=== PATIENT | male | born 1950 | race Caucasian/White ===

== ENCOUNTER 2017-07-02 22:45 | Inpatient (IN) ==
[2017-07-02 23:55] LABS: Basophils % 0.1 %; Hemoglobin 12.6 g/dL (12.9-16.9); Immature Granulocytes % 0.6 % (0-4); Lymphocytes # 0.8 K/mcL (0.6-4.6); Lymphocytes % 9.6 %; Mean Corpuscular Hemoglobin 34.7 pg (28.0-33.3); Mean Corpuscular Volume 99.2 fL (83.0-100.0); Mean Platelet Volume 10.2 fL (9.4-12.4); Monocytes # 0.5 K/mcL (0.0-1.3); Monocytes % 5.2 %; Neutrophils # 7.4 K/mcL (1.6-8.9); Platelet Count 124 K/mcL (140-400); Red Blood Count 3.63 M/mcL (4.19-5.50); Red Cell Distribution Width 13.1 % (11.5-14.5); Segmented Neutrophils % 84.5 %
[2017-07-03 00:10] LABS: Bilirubin,Direct 0.6 mg/dL (0.0-0.5); Calcium 9.4 mg/dL (8.6-10.8); Potassium 4.7 mEq/L (3.5-4.5)
[2017-07-03 00:11] LABS: Albumin 3.5 g/dL (3.5-5.0); Albumin/Globulin Ratio 1.1 (1.1-2.2); Bilirubin,Indirect 0.4 mg/dL (0.0-1.2); Globulin 3.2 g/dL (2.4-3.5); Total Protein 6.7 g/dL (6.0-8.3)
[2017-07-03] MEDS ORDERED: MetroNIDAZOLE 500 MG/100 ML 500 MG/100 ML BAG IVPB ONE (01:15)
--- NOTE | 2017-07-03 01:19 | Emergency Department Note ---
Disposition Clinical Impression: Abdominal pain, Ileitis, Rectal bleed Disposition: Admitted As Inpatient Condition: Fair Time of Disposition: 01:34 Abdominal Pain HPI - General Chief Complaint: ED Abdominal Pain Stated Complaint: abd pain Time Seen by Provider: 07/02/17 23:38 Source: patient Nursing Notes Reviewed: Yes Vital Signs Reviewed: Yes - History of Present Illness HPI Narrative: Mr. Ghosh, 66-year-old male, presents from home for reevaluation of right sided abdominal pain. Onset 3-4 days ago and progressive. He was seen and evaluated yesterday at this facility where CT abdomen and pelvis showed ileitis and he was discharged home with oral antibiotics. Today, patient notes worsening pain , chills, with the addition of new onset loose melanotic stools 2. He has decreased appetite and increased weakness. Patient is a history of bladder cancer with radical cystectomy and urostomy. Hepatic cirrhosis with esophageal varices and portal hypertension. History of infrarenal abdominal aortic aneurysm. Chronic B12 insufficiency secondary to ileal conduit/stomal diversion. Pain Scale: 10 - Related Data Home Medications Medication Instructions Recorded Confirmed Nadolol [Corgard] 40 mg PO DAILY 05/07/15 06/21/17 Previous Rx's Medication Instructions Recorded Cholecalciferol (Vitamin D3) 5,000 unit PO DAILY #30 tablet 11/01/15 [Vitamin D] Phenyleph/Pramoxin/Glycr/W.pet 51 gm RC PRN PRN #1 cream..g. 02/20/16 [Preparation H Cream] Cyanocobalamin (Vitamin B-12) 1,000 mcg PO DAILY #90 tablet 02/24/16 [Vitamin B-12] Lactose-Reduced Food [Ensure 1 each PO TID #90 liquid 05/11/17 Active Protein-Muscle] Gabapentin [Neurontin] 1 cap PO BID #60 capsule 06/21/17 Oxycodone HCl/Acetaminophen 1 each PO TID PRN #90 tablet 06/21/17 [Percocet 5-325 mg Tablet] Ciprofloxacin HCl [Cipro] 500 mg PO BID #14 tablet 07/01/17 Meloxicam 7.5 mg PO BID #14 tablet 07/01/17 metroNIDAZOLE [Flagyl] 500 mg PO TID #21 tablet 07/01/17 Allergies Allergy/AdvReac Type Severity Reaction Status Date / Time Oxycodone Allergy Unknown unknown Verified 07/02/17 23:26 All systems ED: reviewed and negative except as stated. Review of Systems: As Per HPI Abdominal Pain PMH - Past Medical History Medical history: Reports: arthritis, cancer, cirrhosis, hypertension, other Male Surgical History: Reports: other Psychiatric history: Reports: no psych history - Social History Smoking status: Current every day smoker Alcohol use: Reports: none Drug use: Reports: marijuana Physical Exam Vital Signs Reviewed General: Patient is alert, oriented, and in mild discomfort from his abdominal pain. He appears older than stated age and malnourished. HEENT: No facial asymmetry. Head is normocephalic and atraumatic. PERRLA, EOMI. oral mucosa tacky. Trachea midline. Cardiovascular: Heart regular rate and rhythm without clicks, rubs, gallops, or murmurs. No JVD. PMI nondisplaced. Pedal edema. Bilateral radial and posterior tibial pulses 2/4 and equal. Respiratory: Symmetric chest rise with or respiratory effort. Bilateral breath sounds are clear without wheezing, crackles, or rhonchi. Abdomen: A point. Bowel sounds present normoactive x-4 quadrants. Abdomen is soft, nondistended. Tender in right middle abdomen. Urinary ostomy present, clean, with ostomy bag in place. Psych: Patient's affect is appropriate for situation. - General Limitations: no limitations General appearance: alert, in no apparent distress Course Course Narrative: Patient presents for reevaluation of his right-sided abdominal pain. He was seen and evaluated in this emergency department yesterday and discharged home with Flagyl. His pain has persisted with the addition of loose melanotic stools. FOBT is positive with umesh blood and melena on gloved fingertip. Concerned, patient's hemoglobin has dropped from 14.7 as of 12.6 and 36 hours. Patient's vital signs remained stable while in emergency department. Will provide IV fluids and intravenous rate, IV Flagyl, and analgesic. I discussed the patient with the admitting hospitalist, Dr. Gaytan, who agrees to accept the patient for continued evaluation and management. CT abdomen pelvis IV no oral contrast dated 07/01/2017 as read by radiology: CT/CT abd pelvis w iv no oral IMPRESSION: 1. Status post cystectomy with ileal diversion. 2. Bowel wall thickening and edema involving the distal ileum representing nonspecific postinfectious or inflammatory origin. There is no evidence of pneumatosis. 3. Infrarenal abdominal aortic aneurysm 3.6 x 3.6 cm. 4. Cirrhosis with re-demonstration to the left portal vein, main portal vein, and superior mesenteric vein thrombosis. 5. Cholelithiasis. Vital Signs Temperature 97.7 F 07/02/17 23:21 Pulse Rate 60 07/02/17 23:21 Respiratory Rate 20 07/02/17 23:21 Blood Pressure 98/63 07/02/17 23:21 O2 Sat by Pulse Oximetry 99 07/02/17 23:21 Temperature 98.3 F 07/03/17 02:07 Pulse Rate 54 07/03/17 02:07 Respiratory Rate 18 07/03/17 02:07 Blood Pressure 103/63 07/03/17 02:07 O2 Sat by Pulse Oximetry 98 07/03/17 02:07 Oxygen Delivery Oxygen Delivery Room Air Abdominal Pain - Lab Data Result diagrams: 07/02/17 23:45 07/02/17 23:45 Lab Results 07/02/17 07/02/17 07/03/17 Range/Units 23:45 23:45 00:00 WBC 8.8 (4.3-11.1) K/mcL RBC 3.63 L (4.19-5.50) M/mcL Hgb 12.6 L D (12.9-16.9) g/dL Hct 36.0 L (37.5-50.1) % MCV 99.2 (83.0-100.0) fL MCH 34.7 H (28.0-33.3) pg MCHC 35.0 (31.6-35.5) g/dL RDW 13.1 (11.5-14.5) % Plt Count 124 L (140-400) K/mcL MPV 10.2 (9.4-12.4) fL Immature Gran % 0.6 (0-4) % Seg Neutrophils % 84.5 % Lymphocytes % 9.6 % Monocytes % 5.2 % Eosinophils % 0.0 % Basophils % 0.1 % Neutrophils # 7.4 (1.6-8.9) K/mcL Lymphocytes # 0.8 (0.6-4.6) K/mcL Monocytes # 0.5 (0.0-1.3) K/mcL Eosinophils # 0.0 (0.0-0.6) K/mcL Basophils # 0.0 (0.0-0.2) K/mcL Sodium 137 (136-145) mEq/L Potassium 4.7 H (3.5-4.5) mEq/L Chloride 102 (98-109) mEq/L Carbon Dioxide 23 (19-29) mEq/L BUN 38 H (8-26) mg/dL Creatinine 1.54 H (0.72-1.25) mg/dL Est GFR ( Amer) 55 L (> 60) Est GFR (Non-Af Amer) 46 L (> 60) BUN/Creatinine Ratio 25 (6-26) Glucose 109 H (70-99) mg/dL Calculated Osmolality 294 (280-300) Calcium 9.4 (8.6-10.8) mg/dL Total Bilirubin 1.0 (0.2-1.2) mg/dL Direct Bilirubin 0.6 H (0.0-0.5) mg/dL Indirect Bilirubin 0.4 (0.0-1.2) mg/dL AST 17 (5-34) Units/L ALT 10 (0-55) Units/L Alkaline Phosphatase 59 (38-126) Units/L Serum Total Protein 6.7 (6.0-8.3) g/dL Albumin 3.5 (3.5-5.0) g/dL Globulin 3.2 (2.4-3.5) g/dL Albumin/Globulin Ratio 1.1 (1.1-2.2) Lipase 12 (8-78) Units/L Stool Occult Blood Positive A (Negative) Attestation Statement - Attestation Attestation: I, Clive Schaeffer MD, personally evaluated this patient and discussed their management with the resident physician. I reviewed the resident's note and agree with the documented findings, medical decision making, and plan of care. 66-year-old male presents to the emergency department complaining of some right- sided abdominal pain for several days. He was seen here yesterday and had a workup for this including a CT of the abdomen and pelvis which showed ileitis. He returns today because of persistent pain and actual worsening of the pain. Also some blood in his stool. No fever. On examination patient is a well-developed thin female in no acute distress. He is alert and oriented 3. There is no cyanosis or diaphoresis. Breath sounds are decreased but equal bilaterally. Heart regular. Abdomen is soft with slightly increased bowel sounds. There is moderate diffuse right-sided abdominal tenderness with mild guarding. No rebound tenderness. Labs reviewed. The hospitalist, Dr. Gaytan, was consulted and accepted admission of the patient.
[2017-07-03] MEDS ORDERED: Ondansetron 4 MG/2 ML VIAL IVP ONE (01:25)
[2017-07-03] MEDS ORDERED: *HR* HYDROmorphone (PF) 1 MG/ML SYRINGE IVP ONE (01:26)
[2017-07-03] MEDS ORDERED: D5% in 0.45% NACL 1,000 ML IVC SCH (01:30)
[2017-07-03] MEDS ORDERED: Ringers Solution, Lactated 1,000 ML IVC SCH (04:15)
[2017-07-03] MEDS: *HR* Morphine 2 MG/ML SYRINGE IVP PRN ×3 (06:18→20:24)
[2017-07-03 07:47] LABS: Basophils % 0.2 %; Eosinophils % 0.1 %; Hematocrit 32.6 % (37.5-50.1); Hemoglobin 11.4 g/dL (12.9-16.9); Immature Granulocytes % 0.4 % (0-4); Lymphocytes # 0.9 K/mcL (0.6-4.6); Lymphocytes % 9.9 %; Mean Corpuscular Hemoglobin 34.7 pg (28.0-33.3); Mean Corpuscular Volume 99.1 fL (83.0-100.0); Mean Platelet Volume 10.9 fL (9.4-12.4); Monocytes # 0.6 K/mcL (0.0-1.3); Monocytes % 6.6 %; Neutrophils # 7.5 K/mcL (1.6-8.9); Platelet Count 105 K/mcL (140-400); Red Blood Count 3.29 M/mcL (4.19-5.50); Red Cell Distribution Width 13.3 % (11.5-14.5); Segmented Neutrophils % 82.8 %
[2017-07-03 08:02] LABS: BUN/Creatinine Ratio 30 (6-26); Blood Urea Nitrogen 39 mg/dL (8-26); Calcium 8.7 mg/dL (8.6-10.8); Carbon Dioxide 24 mEq/L (19-29); Chloride 105 mEq/L (98-109); Glucose 101 mg/dL (70-99); Magnesium 1.9 mg/dL (1.6-2.6); Osmolality,Calculated 294 (280-300); Potassium 4.4 mEq/L (3.5-4.5); Sodium 137 mEq/L (136-145); eGFR For African Americans > 60 (> 60); eGFR For Non-African Americans 55 (> 60)
[2017-07-03] MEDS: Gabapentin 300 MG CAPSULE PO SCH ×2 (09:30→20:24)
[2017-07-03] MEDS: Cholecalciferol (D-3) 1,000 UNIT TABLET PO SCH (09:30)
[2017-07-03] MEDS: 0.9 % Sodium Chloride 1,000 ML IVC SCH ×2 (09:30→20:22)
[2017-07-03] MEDS ORDERED: Acetaminophen 325 MG TABLET PO PRN (09:41)
[2017-07-03] MEDS ORDERED: Naloxone 0.4 MG/ML INJ IVP PRN (09:41)
[2017-07-03] MEDS ORDERED: Ondansetron 4 MG/2 ML VIAL IVP PRN (09:41)
--- NOTE | 2017-07-03 09:41 | Event Note ---
Date of Encounter: 07/03/17 Time of Encounter: 09:37 Patient seen and exmained with [employer]. He has been having melena with ssome Hb drop. Will start protonix drip and GI consult. He has portal and mesenteric vein thrombosis, anticoagulants cant be given besides part of this is old. He follows with oncology. He mentions that he is in remission from bladder cancer. He had 10 lbs weight loss in the past 6 month so needs follow up with oncology as outpatient. CT showing ileitis, will give IV flagyl and check stool studies.
--- NOTE | 2017-07-03 10:08 | Internal Med History&Physical ---
Date of Encounter: 07/03/17 Time of Encounter: 09:00 Assessment and Plan (1) GI bleeding Current visit: Yes Status: Acute Pt. presents with melatonic stool x2 today. Hx of GI issues and procedures and is considered high-risk d/t current cirrhosis, portal hypertensions, hypersplenism, and thrombocytopenia. Pts. BUN is 30 which is consistent w/GI bleeding. Hgb 12.6 and Hct 36.0 yesterday. Hgb 10.1 and Hct 29.4 at last draw this afternoon. H/H Q6HR. Protonix drip. Monitor I&O. NPO at present. Will consider clear liquids if pt. able to tolerate d/t N/V. Surgical consult ordered and discussed w/Dr. Corrigan with concern for possible esophageal varices. Pt. seen by Dr. Guajardo in the past, so Casandra consulted w/opinion towards duodenitis or gastritis as previous imaging negative for varices in his opinion. Administer B12 IM. Avoid acetaminophen d/t cirrhosis. Avoid NSAIDs d/t current bleeding. Type and screen completed for possible transfusion based on continued drop in Hgb/Hct. Pt. to be monitored closely. Pt. high risk d/t current sx of bleeding, hx of cirrhosis/portal HTN/hypersplenism/ thrombocytopenia, and risk factors. Inpatient. Qualifiers: GI bleed type/associated pathology: unspecified gastrointestinal hemorrhage type Qualified Code(s): K92.2 - Gastrointestinal hemorrhage, unspecified (2) Abdominal pain Current visit: Yes Status: Acute Pt. reports acute right-sided lower abdominal pain for the past several days which has worsened with N/V. Pt. also reports melanotic stool x2. Pt. was seen at ED on 07/01/17 and thought to have ileitis and discharged on Cipro and Flagyl. Reports pain worsened with black stool x2 today. Hgb was 12.6 and Hct was 36.0 yesterday. Today both are consistently dropping. Consult with surgery ordered and discussed w/Dr. Corrigan w/concern for possible esophageal varices. Pt. seen by Dr. Guajardo in the past, so Casandra consulted w/opinion towards duodenitis or gastritis as previous imaging negative for varices. Recommendation from Dr. Guajardo to continue Protonix drip and monitor Hgb/Hct Q6HR. Patient NPO at present. Will begin clear diet if pt. able to tolerate. Pain medication (will avoid acetaminophen d/t cirrhosis and NSAIDs d/t current GI bleeding of unknown source ). Qualifiers: Abdominal location: right lower quadrant Qualified Code(s): R10.31 - Right lower quadrant pain (3) B12 deficiency Current visit: Yes Status: Chronic Hx of chronic B12 deficiency d/t current cirrhosis and GI bleeding. 1,000 mcg B12 IM once. (4) Cirrhosis of liver Current visit: Yes Status: Chronic Hx of chronic cirrhosis of the liver d/t alcohol abuse. Qualifiers: Hepatic cirrhosis type: alcoholic cirrhosis Ascites presence: without ascites Qualified Code(s): K70.30 - Alcoholic cirrhosis of liver without ascites (5) Cholelithiasis Current visit: Yes Status: Chronic CT of the abdomen/pelvis on 07/01/17 shows multiple stones present in the gallbladder. Stable. Monitor OP w/PCP if cholelithiasis becomes problematic. Pt. not surgical candidate at this time. Qualifiers: Cholelithiasis location: gallbladder Cholecystitis acuity: chronic Biliary obstruction: without biliary obstruction Qualified Code(s): K80.10 - Calculus of gallbladder with chronic cholecystitis without obstruction (6) HTN (hypertension) Current visit: Yes Status: Chronic Hx of chronic HTN. Monitor pt. and VS. Continue Corgard. Qualifiers: Hypertension type: essential hypertension Qualified Code(s): I10 - Essential (primary) hypertension (7) Bladder cancer Current visit: Yes Status: Resolved Hx of bladder cancer. Pt. reports removal of bladder in 2010 with urinary ostomy in place. Maintain ostomy while inpatient. Qualifiers: Bladder location: unspecified site Qualified Code(s): C67.9 - Malignant neoplasm of bladder, unspecified (8) DVT prophylaxis Current visit: Yes Status: Acute Bilateral SCDs on LEs for DVT prophylaxis. Pharmacologic prophylaxis contraindicated d/t current melenotic stool and acutely decreasing Hgb/Hct. Internal Medicine - H&P: HPI Chief complaint: Right-sided abdominal pain/Rectal bleeding Admitted From: Emergency Dept Plans for Post Hospital Care: Home History of present illness: Mr. Ghosh is a 66 year old male with medical history of arthritis, bladder cancer resulting in the removal of his bladder in 2010, alcoholic cirrhosis of the liver, aortic aneurysm, and hypertension reports from the ED with chief complaint of right-sided abdominal pain for past 3-4 days and rectal bleeding for the past 24 hours. Patient was seen 2 days ago at [facility] and diagnosed with ileitis and discharged with by mouth antibiotics. Patient states pain became worse and return today due to new onset of rectal bleeding and loose stools. Patient reports decreased appetite, nausea, vomiting, increased weakness, rectal bleeding, and abdominal pain that is right sided but denies recent illness, fever, chills chest pain, palpitations, changes in vision, dizziness, lightheadedness, shortness of breath, presyncope, or syncope. Past Med Surg Social Fam HX - Past Medical History Source: patient, old records reviewed Medical history: arthritis, cancer (Bladder cancer w/removal of bladder in 2010) , cirrhosis, hypertension, other Psychiatric history: no psych history - Past Surgical History Surgical History: other (Bladder removal) - Social History Smoking Status: Current every day smoker Packs per day: 0.5 Smokeless Tobacco Status: No Alcohol use: none Drug use: marijuana Current living situation: Home Activity Level: Independent ambulation Recent Out of Country Travel Within the Last 8 Weeks: No Exposure or Possible Exposure to Illness During Travel: No - Family History Father Race: Family Member Ethnicity: Non- Living Status: Age at : 62 Cause of : Suicide Hx Family Cardiac Disorders: Yes ([place], CAD) Brother Race: Family Member Ethnicity: Non- Living Status: Hx Family Cardiac Disorders: Yes (CAD, [place]) Mother Race: Family Member Ethnicity: Non- Living Status: Cause of : Old age Sister Race: Family Member Ethnicity: Non- Living Status: Cause of : Unknown Internal Medicine - H&P: Meds Nadolol [Corgard] 40 mg PO DAILY 05/07/15 [History] Cholecalciferol (Vitamin D3) [Vitamin D] 5,000 unit PO DAILY #30 tablet [Rx] Cyanocobalamin (Vitamin B-12) [Vitamin B-12] 1,000 mcg PO DAILY #90 tablet 02/23 [Rx] Ciprofloxacin HCl [Cipro] 500 mg PO BID #14 tablet 07/01/17 [Rx] Meloxicam 7.5 mg PO BID #14 tablet 07/01/17 [Rx] metroNIDAZOLE [Flagyl] 500 mg PO TID #21 tablet 07/01/17 [Rx] Gabapentin [Neurontin] 300 mg PO BID 07/03/17 [History] Oxycodone HCl/Acetaminophen [Percocet 5-325 mg Tablet] 1 tab PO TID PRN [History] 3 Allergy/AdvReac Type Severity Reaction Status Date / Time Oxycodone Allergy Unknown unknown Verified 07/02/17 23:26 All Systems PM: A 10-system review of systems was performed and is negative for pertinent findings except as documented above in the HPI. - Constitutional Constitutional: as per HPI, anorexia, weakness, no chills, no fever(s), no night sweats - EENT Eyes: no change in vision, no discharge, no pain, no photophobia Ears: no ear discharge, no ear pain, no tinnitus Nose, mouth and throat: no dysphagia, no nasal discharge, no neck pain, no sore throat - Breasts Breasts: as per HPI - Cardiovascular Cardiovascular ROS IM: no chest pain, no diaphoresis, no dyspnea, no lightheadedness, no palpitations, no syncope - Respiratory Respiratory: no cough, no dyspnea, no wheezing, no excessive phlegm production - Gastrointestinal Gastrointestinal: as per HPI, abdominal pain, loose stools, melena, nausea, vomiting - Genitourinary Genitourinary ROS male: as per HPI - Musculoskeletal Musculoskeletal ROS IM: no numbness, no tingling - Integumentary Integumentary IM: no rash, no unusual bruising - Neurological Neurological ROS: no confusion, no convulsions, no focal weakness, no numbness, no tingling, no tremor(s) - Psychiatric Psychiatric: as per HPI - Endocrine Endocrine IM: as per HPI - Hematologic/Lymphatic Hematologic/Lymphatic: no easy bruising - Allergic/Immunologic Allergic/Immunologic: as per HPI - Constitutional Vitals: Temp Pulse Resp BP Pulse Ox 98.5 F 52 15 107/58 97 07/03/17 07:56 07/03/17 07:56 07/03/17 07:56 07/03/17 07:56 07/03/17 07:56 General appearance: Present: cooperative, mild distress, A&O X 3, pleasant, underweight, answers questions appropriately - Head Head exam: Present: atraumatic, normocephalic - Eye Eye exam: Present: PERRL, conjuntiva pink, sclera anicteric Pupils: Present: PERRL - ENT ENT exam: Present: normal exam, normal external ear exam - Neck Neck exam general surgery: Present: normal inspection, supple, trachea midline. Absent: lymphadenopathy - Respiratory Respiratory exam: Present: CTAB. Absent: accessory muscle use, rales, rhonchi, wheezes - Cardiovascular Cardiovascular exam: Present: RRR, +S1, +S2. Absent: diastolic murmur, gallop, rubs, systolic murmur - GI/Abdominal GI/Abdominal exam: Present: diminished bowel sounds, guarding, soft, tenderness , no peritoneal signs. Absent: distended - Rectal Rectal exam: Present: deferred - Additional comments: exam deferred. - Extremities Exam Extremities exam: Present: warm, radial pulses palpable and symmetrical. Absent : calf tenderness, cyanotic, pedal edema - Back Exam Back exam: Present: normal inspection - Neurological Exam Neurological exam: Present: CN II-XII intact, oriented X3, no focal deficits. Absent: pronater drift, facial droop, speech deficit - Psychiatric Psychiatric exam: Present: normal affect, normal mood - Skin Skin exam: Present: dry, intact Internal Med - H&P Results - Labs CBC & Chem 7: 07/03/17 14:33 07/03/17 07:28 Labs: Short CBC 07/03/17 Range/Units 07:28 WBC 9.1 (4.3-11.1) K/mcL Hgb 11.4 L (12.9-16.9) g/dL Hct 32.6 L (37.5-50.1) % Plt Count 105 L (140-400) K/mcL Neutrophils # 7.5 (1.6-8.9) K/mcL BMP 07/03/17 07:28 Sodium 137 Potassium 4.4 Chloride 105 Carbon Dioxide 24 BUN 39 H Creatinine 1.31 H Glucose 101 H Calcium 8.7 - Diagnostic Studies CT scan - abdomen Additional comments: CT of the abdomen/pelvis on 07/01/17 showed: 1. Status post cystectomy with ileal diversion. 2. Bowel wall thickening and edema involving the distal ileum representing nonspecific postinfectious or inflammatory origin. There is no evidence of pneumatosis. 3. Infrarenal abdominal aortic aneurysm 3.6 x 3.6 cm. 4. Cirrhosis with re-demonstration to the left portal vein, main portal vein, and superior mesenteric vein thrombosis. 5. Cholelithiasis.
[2017-07-03] MEDS: Pantoprazole 40 MG in 0.9 % Sodium Chloride Mini Bag 100 ML IVC SCH ×3 (10:12→21:42)
[2017-07-03 10:19] LABS: Hematocrit 31.6 % (37.5-50.1); Hemoglobin 10.8 g/dL (12.9-16.9)
[2017-07-03 10:24] LABS: INR 1.2; Prothrombin Time 12.5 Seconds (9.4-12.1)
[2017-07-03 10:27] LABS: Activated Partial Thrombo Time 26.4 Seconds (26.0-36.0)
[2017-07-03 11:52] LABS: Hematocrit 31.3 % (37.5-50.1); Hemoglobin 10.9 g/dL (12.9-16.9)
--- NOTE | 2017-07-03 14:26 | General Surgery Consult Note ---
Date of Encounter: 07/03/17 Time of Encounter: 13:30 History of Present Illness Consult date: 07/03/17 Requesting physician: Vincent Hernandez History of present illness: General Surgery / GI coverage Called to see a 66-year-old patient for further evaluation of right upper quadrant abdominal pain and rectal bleeding. The patient describes several days abdominal pain and rectal bleeding which he characterizes as black and tarry. The patient presented to the ED, 07/01/17, for these complaints. CT of the abdomen and pelvis was completed with diagnosis of distal ileitis. The patient was treated with antibiotics and discharged with instructions to follow- up with his primary care provider. Review of those records reveal the patient was discharged home on ciprofloxacin, meloxicam, and metronidazole. Patient returns today with complaints increased abdominal pain and melena. Patient has a known history of bladder cancer, status post total cystectomy with ileal conduit 2010; alcoholic cirrhosis of the liver; hypersplenism with resultant thrombocytopenia. The patient has been followed by Dr. Guajardo, however, I am unable to review the most recent EGD which appears to have been completed, February 2016. Biopsies completed during that EGD showed mild active duodenitis, esophageal biopsies demonstrated mild reactive changes with benign foveolar hyperplasia. No metaplasia or dysplasia identified. The patient is an extremely poor historian and unable to provide information whether esophageal varices were identified during the EGD or at any other time. Following receipt of the consultation, I personally reviewed the most recent CT with [facility] including comparison to a prior CT, 02/05/17, and another completed in 2014. The CT completed in February,, was limited by the lack of IV contrast but findings per the CTs include: portal venous thrombus involving the left hepatic vein which was also present in 2014; diffuse thickening of the distal small bowel in the right pelvis without surrounding inflammation (these finding also date back to 2014); evidence of an ileal conduit, and gallstones. The wall thickening appears more likely due to prior total cystectomy with XRT rather than an acute infectious etiology. Past medical history: Advanced bladder cancer (high-grade urothelial cancer with submucosal invasion), treated with neoadjuvant chemotherapy followed by total cystectomy with pelvic irradiation; Cholelithiasis, hypertension, cirrhosis, hypersplenism, thrombocytopenia; arthritis Oncology notation describes - chronic liver disease with portal hypertension and esophageal varices Allergies: Percocet Medications: Nadolol 40 mg by mouth daily Cholecalciferol 5000 units by mouth daily Cyanocobalamin 1000 g by mouth daily Cipro 500 mg by mouth twice a day (prescribed 07/01/17) Meloxicam 7.5 mg by mouth twice a day (prescribed 07/01/17) Metronidazole 500 mg by mouth 3 times a day (prescribed 07/01/17) Gabapentin 300 mg by mouth twice a day Oxycodone with acetaminophen 5/325 one by mouth 3 times a day as needed for pain -NOTED despite history allergy to Percocet Social history: Continued tobacco abuse, currently smoking half pack per day; duration at least 45 years History of alcohol abuse, he quit in the but admits that alcohol is the source of his liver disease Occasional marijuana which provides relief of his pain "better than his other medications" Physical examination: Thin, most cachectic male, resting comfortably in his hospital bed. The patient has been afebrile, currently 98.4; pulse 53, respirations 16, blood pressure currently 92/51 but earlier today 103/60. Skin: Warm, no obvious jaundice Lungs: Clear to auscultation, no obvious pain on deep inspiration Cardiac: Bradycardia but no appreciable murmurs Abdomen: Tenderness in the right upper quadrant but repeated palpation inconsistently reproduced patient's pain. An ileal conduit with appliance is present right mid abdominal wall. Clear urine is in the appliance No palpable masses or rebound. Active bowel sounds were noted. Laboratories: White count 9.1. Hemoglobin 12.6 on 07/02, currently 10.9; hematocrit 36.0 on 07/02, currently 31.3 Platelet count 106,000; differential unremarkable. PT/INR 12.5/1.2 Electrolytes within an acceptable range; BUN 39 (review of historical data indicates BUN has been within normal limits until 07/01/2017, increasing from 29 -39) creatinine stable ranging from 1.31-1.62 (historical data in a similar range) LFTs within normal limits, 07/02/17 Impression: 66-year-old male, admitted after returning to the hospital with increasing complaints abdominal pain and rectal bleeding which is characterized by the patient as melenic. Hemoglobin has fallen. The patient is considered high risk for upper GI source (cirrhosis, portal hypertensions with likely esophageal varicies, hypersplenism and thrombocytopenia). The elevated BUN is consistent with blood within the GI tract. Review of ER records show treatment initiated for distal ileitis and pain management with meloxicam. The radiologic findings are more likely chronic due to prior surgery and irradiation and are evident on prior CTs. The meloxicam is contra indicated in the face of the suspected GI hemorrhage. Tylenol should not be administered ( or limited) to this patient due to the history chonic liver disease. Recommendations discontinue ATB discontinue meloxicam if ordered on admission continue IV pantoprazole serial H&H - if evidence continued bleeding - consider EGD though risks are high if esophageal varicies are present. I am not credentialled or able to provide esophageal banding in the face of UGI hemorrhage d/t esophageal varicies. abdominal pain may be due to the cholelithiasis causing biliary colic - however, patient exam inconsistent with this diagnosis. Surgical intervention not recommended at this time. Discussed in detail with Vincent Hernandez CNP Past Med Surg Social Fam HX - Past Medical History Medical history: arthritis, cancer, cirrhosis, hypertension, other Psychiatric history: no psych history - Social History Smoking Status: Current every day smoker Packs per day: 0.5 Smokeless Tobacco Status: No Alcohol use: none Drug use: marijuana - Family History Father Hx Family Cardiac Disorders: Yes Brother Hx Family Cancer: Yes Medications and Allergies Nadolol [Corgard] 40 mg PO DAILY 05/07/15 [History] Cholecalciferol (Vitamin D3) [Vitamin D] 5,000 unit PO DAILY #30 tablet [Rx] Cyanocobalamin (Vitamin B-12) [Vitamin B-12] 1,000 mcg PO DAILY #90 tablet 02/23 [Rx] Ciprofloxacin HCl [Cipro] 500 mg PO BID #14 tablet 07/01/17 [Rx] Meloxicam 7.5 mg PO BID #14 tablet 07/01/17 [Rx] metroNIDAZOLE [Flagyl] 500 mg PO TID #21 tablet 07/01/17 [Rx] Gabapentin [Neurontin] 300 mg PO BID 07/03/17 [History] Oxycodone HCl/Acetaminophen [Percocet 5-325 mg Tablet] 1 tab PO TID PRN [History] 3 Allergy/AdvReac Type Severity Reaction Status Date / Time Oxycodone Allergy Unknown unknown Verified 07/02/17 23:26 Review of Systems All systems PM: A 10-system review of systems was performed and is negative for pertinent findings except as documented above in the HPI. General Surgery Exam Initial Vital Signs Temp Pulse Resp BP Pulse Ox 97.7 F 60 20 98/63 99 07/02/17 23:21 07/02/17 23:21 07/02/17 23:21 07/02/17 23:21 07/02/17 23:21 Exam Initial Vital Signs Temp Pulse Resp BP Pulse Ox 97.7 F 60 20 98/63 99 07/02/17 23:21 07/02/17 23:21 07/02/17 23:21 07/02/17 23:21 07/02/17 23:21 Results - Labs 07/03/17 10:02 07/03/17 07:28 Abnormal lab results RBC 3.29 M/mcL (4.19-5.50) L 07/03/17 07:28 Hgb 10.9 g/dL (12.9-16.9) L 07/03/17 10:02 Hct 31.3 % (37.5-50.1) L 07/03/17 10:02 MCH 34.7 pg (28.0-33.3) H 07/03/17 07:28 Plt Count 106 K/mcL (140-400) L 07/03/17 10:02 PT 12.5 Seconds (9.4-12.1) H 07/03/17 10:02 BUN 39 mg/dL (8-26) H 07/03/17 07:28 Creatinine 1.31 mg/dL (0.72-1.25) H 07/03/17 07:28 Est GFR (Non-Af Amer) 55 (> 60) L 07/03/17 07:28 BUN/Creatinine Ratio 30 (6-26) H 07/03/17 07:28 Glucose 101 mg/dL (70-99) H 07/03/17 07:28 Direct Bilirubin 0.6 mg/dL (0.0-0.5) H 07/02/17 23:45 Stool Occult Blood Positive (Negative) A 07/03/17 00:00 All other labs normal. Consult Discharge Plan - Plan Referrals: Sushil Rowan MD [Primary Care Provider] -
[2017-07-03 14:52] LABS: Hematocrit 29.4 % (37.5-50.1); Hemoglobin 10.1 g/dL (12.9-16.9)
[2017-07-03 14:52] LABS: Bilirubin,Urine Small (Negative); Blood,Urine Negative (Negative); Clarity,Urine Cloudy (Clear); Color,Urine Dark Yellow (Yellow); Glucose,Urine (UA) Normal (Normal); Ketones,Urine 15 mg/dL (Negative); Leukocyte Esterase,Urine Moderate (Negative); Nitrite,Urine Negative (Negative); PH,Urine 8.5 pH Units (5.0-8.0); Protein,Urine 100 mg/dL (Neg-Trace); Specific Gravity,Urine 1.018 (1.010-1.025); Urobilinogen,Urine Normal (Normal)
[2017-07-03 14:54] LABS: Bacteria,Urine Few per hpf (None-Few); Hyaline Casts,Urine None Seen per lpf (None-Few); Squamous Epithelial Cell,Urine Many per lpf (None-Few)
[2017-07-03] MEDS ORDERED: MetroNIDAZOLE 500 MG/100 ML 500 MG/100 ML BAG IVPB SCH (16:00)
[2017-07-03] MEDS ORDERED: Cyanocobalamin (B-12) 1,000 MCG/ML VIAL IM ONE (16:01)
[2017-07-03] MEDS ORDERED: *HR* Propofol 500 MG/50 ML BOTTLE IVC ONE (18:20)
[2017-07-03] MEDS ORDERED: Lidocaine -MPF 2% 5 ML VIAL INFILT ONE (18:20)
[2017-07-03] MEDS: Octreotide 400 MCG in 0.9 % Sodium Chloride 100 ML IVC SCH (23:27)
[2017-07-04] MEDS: Pantoprazole 40 MG in 0.9 % Sodium Chloride Mini Bag 100 ML IVC SCH ×5 (02:25→20:35)
[2017-07-04 02:29] LABS: Basophils % 0.3 %; Eosinophils # 0.1 K/mcL (0.0-0.6); Hematocrit 29.4 % (37.5-50.1); Hemoglobin 9.9 g/dL (12.9-16.9); Immature Granulocytes % 0.3 % (0-4); Lymphocytes # 1.3 K/mcL (0.6-4.6); Mean Corpuscular HGB Conc 33.7 g/dL (31.6-35.5); Mean Corpuscular Hemoglobin 34.3 pg (28.0-33.3); Mean Corpuscular Volume 101.7 fL (83.0-100.0); Mean Platelet Volume 10.7 fL (9.4-12.4); Monocytes # 0.5 K/mcL (0.0-1.3); Monocytes % 7.6 %; Neutrophils # 4.8 K/mcL (1.6-8.9); Red Blood Count 2.89 M/mcL (4.19-5.50); Red Cell Distribution Width 13.5 % (11.5-14.5); Segmented Neutrophils % 71.8 %
[2017-07-04 02:31] LABS: Platelet Count 98 K/mcL (140-400)
[2017-07-04 02:54] LABS: Alanine Aminotransferase 9 Units/L (0-55); Albumin/Globulin Ratio 1.2 (1.1-2.2); Alkaline Phosphatase 48 Units/L (38-126); Aspartate Amino Transferase 18 Units/L (5-34); BUN/Creatinine Ratio 25 (6-26); Bilirubin,Total 0.9 mg/dL (0.2-1.2); Blood Urea Nitrogen 31 mg/dL (8-26); Calcium 8.1 mg/dL (8.6-10.8); Carbon Dioxide 22 mEq/L (19-29); Chloride 111 mEq/L (98-109); Chol/HDL Ratio 4.2 (0-4.9); Cholesterol 93 mg/dL (< 200); Globulin 2.2 g/dL (2.4-3.5); Glucose 44 mg/dL (70-99); HDL Cholesterol 22 mg/dL (40-59); LDL Cholesterol,Calculated 41 mg/dL (0-99); Magnesium 1.9 mg/dL (1.6-2.6); Osmolality,Calculated 292 (280-300); Potassium 4.1 mEq/L (3.5-4.5); Sodium 139 mEq/L (136-145); Triglycerides 150 mg/dL (< 150); eGFR For African Americans > 60 (> 60); eGFR For Non-African Americans 59 (> 60)
[2017-07-04 02:56] LABS: Hemoglobin A1C 4.8 %
[2017-07-04 03:05] LABS: Albumin 2.7 g/dL (3.5-5.0); Total Protein 4.9 g/dL (6.0-8.3)
[2017-07-04] MEDS: *HR* Morphine 2 MG/ML SYRINGE IVP PRN ×3 (06:38→20:42)
[2017-07-04] MEDS: 0.9 % Sodium Chloride 1,000 ML IVC SCH ×2 (10:40→20:34)
[2017-07-04] MEDS: Gabapentin 300 MG CAPSULE PO SCH ×2 (10:40→20:42)
[2017-07-04] MEDS: Cholecalciferol (D-3) 1,000 UNIT TABLET PO SCH (10:40)
--- NOTE | 2017-07-04 12:15 | General Surgery Progress Note ---
Date of Encounter: 07/04/17 Time of Encounter: 12:11 Subjective Patient reports: feels better Narrative: General Surgery - GI coverage Patient feeling better; no longer complaining of pain H&H stable for the last 24 hours - approx 10.0/29.0 Lungs: clear Abd: soft, scaphoid, nontender. Patient indicates repeated endoscopies and care rendered by Dr Guajardo. Will defer further care to Dr Guajardo in AM No urgent intervention required at this time. Should patient's status change - I will be available to assist in this patient's care Objective Vital Signs - Last 8 Hours Temp Pulse Resp BP Pulse Ox 07/04/17 10:47 97.5 F L 51 16 116/67 99 07/04/17 06:48 97.7 F 51 16 97/55 99 07/04/17 05:27 97.6 F 50 16 102/67 100 Intake and Output 07/03/17 07/04/17 07/04/17 23:59 07:59 15:59 Intake Total 1100 / 1100 1200 / 1200 130 / 130 Output Total 150 / 150 225 / 225 225 / 225 Balance 950 / 950 975 / 975 -95 / -95 Intake: IV Fluids 1100 / 1100 1200 / 1200 100 / 100 0.9 % Sodium Chloride 1,000 ML 1000 / 1000 1000 / 1000 @ 100 mls/hr IVC .Q10H [facility] Rx#: [id number] Protonix 40 MG In 0.9 % Sodium 100 / 100 200 / 200 100 / 100 Chloride (Mini-Bag +) 100 ML @ 20 mls/hr IVC .Q5H [facility] Rx#: [id number] Oral 30 / 30 Output: Urine 225 / 225 Urostomy 150 / 150 225 / 225 Other: Weight 53.796 kg Patient Weight 07/04/17 23:59 Weight 53.796 kg - Labs 07/04/17 02:18 07/04/17 02:18 Diabetes panel 07/04/17 07/04/17 Range/Units 02:18 02:18 Sodium 139 (136-145) mEq/L Potassium 4.1 (3.5-4.5) mEq/L Chloride 111 H (98-109) mEq/L Carbon Dioxide 22 (19-29) mEq/L BUN 31 H (8-26) mg/dL Creatinine 1.24 (0.72-1.25) mg/dL Glucose 44 L (70-99) mg/dL Hemoglobin A1c 4.8 ( - 5.6) % Calcium 8.1 L (8.6-10.8) mg/dL AST 18 (5-34) Units/L ALT 9 (0-55) Units/L Alkaline Phosphatase 48 (38-126) Units/L Albumin 2.7 L D (3.5-5.0) g/dL Triglycerides 150 H (< 150) mg/dL HDL Cholesterol 22 L (40-59) mg/dL Calcium panel 07/04/17 Range/Units 02:18 Calcium 8.1 L (8.6-10.8) mg/dL Albumin 2.7 L D (3.5-5.0) g/dL Pituitary panel 07/04/17 Range/Units 02:18 Sodium 139 (136-145) mEq/L Potassium 4.1 (3.5-4.5) mEq/L Chloride 111 H (98-109) mEq/L Carbon Dioxide 22 (19-29) mEq/L BUN 31 H (8-26) mg/dL Creatinine 1.24 (0.72-1.25) mg/dL Glucose 44 L (70-99) mg/dL Calcium 8.1 L (8.6-10.8) mg/dL Adrenal panel 07/04/17 Range/Units 02:18 Sodium 139 (136-145) mEq/L Potassium 4.1 (3.5-4.5) mEq/L Chloride 111 H (98-109) mEq/L Carbon Dioxide 22 (19-29) mEq/L BUN 31 H (8-26) mg/dL Creatinine 1.24 (0.72-1.25) mg/dL Glucose 44 L (70-99) mg/dL Calcium 8.1 L (8.6-10.8) mg/dL Total Bilirubin 0.9 (0.2-1.2) mg/dL AST 18 (5-34) Units/L ALT 9 (0-55) Units/L Alkaline Phosphatase 48 (38-126) Units/L Albumin 2.7 L D (3.5-5.0) g/dL Consult Discharge Plan - Plan Referrals: Sushil Rowan MD [Primary Care Provider] -
[2017-07-04] MEDS: Octreotide 400 MCG in 0.9 % Sodium Chloride 100 ML IVC SCH (13:36)
--- NOTE | 2017-07-04 18:45 | Internal Med Progress Note ---
Date of Encounter: 07/04/17 Time of Encounter: 11:00 - Assessment and plan (1) GI bleeding Current Visit: Yes Status: Acute Assessment and plan: -Patient occult positive with abdominal pain -Patient is hemodynamically stable -We will continue octreotide and PPI infusion -GI consult for EGD Qualifiers: GI bleed type/associated pathology: unspecified gastrointestinal hemorrhage type Qualified Code(s): K92.2 - Gastrointestinal hemorrhage, unspecified (2) Abdominal pain Current Visit: Yes Status: Acute Assessment and plan: -Suspect secondary to the above -Patient also however has cholelithiasis and history of alcoholic cirrhosis -GI following an appreciate any additional recommendations Qualifiers: Abdominal location: right lower quadrant Qualified Code(s): R10.31 - Right lower quadrant pain (3) Cholelithiasis Current Visit: Yes Status: Chronic Assessment and plan: -As above. Qualifiers: Cholelithiasis location: gallbladder Cholecystitis acuity: chronic Biliary obstruction: without biliary obstruction Qualified Code(s): K80.10 - Calculus of gallbladder with chronic cholecystitis without obstruction (4) Cirrhosis of liver Current Visit: Yes Status: Chronic Assessment and plan: -As above Qualifiers: Hepatic cirrhosis type: alcoholic cirrhosis Ascites presence: without ascites Qualified Code(s): K70.30 - Alcoholic cirrhosis of liver without ascites (5) HTN (hypertension) Current Visit: Yes Status: Chronic Qualifiers: Hypertension type: essential hypertension Qualified Code(s): I10 - Essential (primary) hypertension (6) DVT prophylaxis Current Visit: Yes Status: Acute Assessment and plan: -SCDs - Subjective Interval history: Patient still with abdominal discomfort this morning. Hemoglobin has decreased slightly but patient hemodynamically stable - Constitutional Vitals: Temp Pulse Resp BP Pulse Ox 97.7 F 53 16 90/41 97 07/04/17 15:54 07/04/17 15:54 07/04/17 15:54 07/04/17 15:54 07/04/17 15:54 General appearance: Present: cooperative, mild distress, A&O X 3, pleasant, underweight, answers questions appropriately - Respiratory Respiratory exam: Present: CTAB. Absent: accessory muscle use, rales, rhonchi, wheezes - Cardiovascular Cardiovascular exam: Present: RRR, +S1, +S2. Absent: diastolic murmur, gallop, rubs, systolic murmur Internal Medicine: Result - Labs CBC & Chem 7: 07/04/17 02:18 07/04/17 02:18 Labs: Short CBC 07/03/17 07/04/17 Range/Units 20:32 02:18 WBC 6.7 (4.3-11.1) K/mcL Hgb 10.0 L 9.9 L (12.9-16.9) g/dL Hct 29.0 L 29.4 L (37.5-50.1) % Plt Count 98 L (140-400) K/mcL Neutrophils # 4.8 (1.6-8.9) K/mcL BMP 07/04/17 02:18 Sodium 139 Potassium 4.1 Chloride 111 H Carbon Dioxide 22 BUN 31 H Creatinine 1.24 Glucose 44 L Calcium 8.1 L Liver Function 07/04/17 Range/Units 02:18 Total Bilirubin 0.9 (0.2-1.2) mg/dL AST 18 (5-34) Units/L ALT 9 (0-55) Units/L Alkaline Phosphatase 48 (38-126) Units/L Albumin 2.7 L D (3.5-5.0) g/dL - ABG Interpretation ABG results: PT/INR, D-dimer PT 12.5 Seconds (9.4-12.1) H 07/03/17 10:02 Consult Discharge Plan - Plan Referrals: Sushil Rowan MD [Primary Care Provider] -
[2017-07-05] MEDS: Pantoprazole 40 MG in 0.9 % Sodium Chloride Mini Bag 100 ML IVC SCH ×3 (03:44→12:34)
[2017-07-05] MEDS: *HR* Morphine 2 MG/ML SYRINGE IVP PRN (03:45)
[2017-07-05 03:50] LABS: Basophils % 0.5 %; Hemoglobin 9.8 g/dL (12.9-16.9); Mean Platelet Volume 11.5 fL (9.4-12.4); Monocytes # 0.3 K/mcL (0.0-1.3); Monocytes % 7.8 %
[2017-07-05 03:52] LABS: Eosinophils # 0.1 K/mcL (0.0-0.6); Eosinophils % 2.4 %; Hematocrit 28.7 % (37.5-50.1); Immature Granulocytes % 0.5 % (0-4); Immature Platelets 7.3 % (1.1-6.1); Lymphocytes # 0.9 K/mcL (0.6-4.6); Lymphocytes % 22.2 %; Mean Corpuscular HGB Conc 34.1 g/dL (31.6-35.5); Mean Corpuscular Volume 102.5 fL (83.0-100.0); Neutrophils # 2.7 K/mcL (1.6-8.9); Red Cell Distribution Width 13.5 % (11.5-14.5); Segmented Neutrophils % 66.6 %
[2017-07-05 03:54] LABS: Platelet Count 89 K/mcL (140-400)
[2017-07-05 04:04] LABS: Alanine Aminotransferase 12 Units/L (0-55); Albumin 2.6 g/dL (3.5-5.0); Albumin/Globulin Ratio 1.2 (1.1-2.2); Alkaline Phosphatase 50 Units/L (38-126); Aspartate Amino Transferase 23 Units/L (5-34); BUN/Creatinine Ratio 19 (6-26); Bilirubin,Total 0.7 mg/dL (0.2-1.2); Blood Urea Nitrogen 25 mg/dL (8-26); Calcium 7.7 mg/dL (8.6-10.8); Carbon Dioxide 20 mEq/L (19-29); Chloride 114 mEq/L (98-109); Globulin 2.2 g/dL (2.4-3.5); Glucose 97 mg/dL (70-99); Osmolality,Calculated 296 (280-300); Potassium 4.2 mEq/L (3.5-4.5); Sodium 141 mEq/L (136-145); Total Protein 4.8 g/dL (6.0-8.3); eGFR For African Americans > 60 (> 60); eGFR For Non-African Americans 55 (> 60)
[2017-07-05] MEDS: Octreotide 400 MCG in 0.9 % Sodium Chloride 100 ML IVC SCH (06:11)
[2017-07-05] MEDS: 0.9 % Sodium Chloride 1,000 ML IVC SCH (06:15)
[2017-07-05] MEDS ORDERED: *HR* Morphine 2 MG/ML SYRINGE IVP PRN (07:56)
[2017-07-05] MEDS: Cholecalciferol (D-3) 1,000 UNIT TABLET PO SCH (08:05)
[2017-07-05] MEDS: Gabapentin 300 MG CAPSULE PO SCH (08:05)
--- NOTE | 2017-07-05 12:19 | Gastroenterology Consult Note ---
<Dewayne Mccann - Last Filed: 07/05/17 12:16> Date of Encounter: 07/05/17 Time of Encounter: 12:05 - Assessment and plan (1) Melena Current Visit: Yes Status: Acute Assessment and plan: Plan for EGD today to r/o esophagitis, gastritis, duodenitis, PUD, MW tear, or AVM. Keep NPO. Continue Octreotide and PPI drip. (2) Cirrhosis of liver Current Visit: Yes Status: Chronic Assessment and plan: Secondary to alcohol abuse. No alcohol consumption since mid-. MELD Na 11 , Child-[place] class B, DF 10.1. Last liver US 12/04/2016 with cirrhosis, no lesions noted, portal HTN, no ascites. Last AAFP 1.9 on 11/13/2014. Check liver US and AFP. Plan for EGD today. Keep NPO. Qualifiers: Hepatic cirrhosis type: alcoholic cirrhosis Ascites presence: without ascites Qualified Code(s): K70.30 - Alcoholic cirrhosis of liver without ascites (3) Abdominal pain Current Visit: Yes Status: Acute Assessment and plan: Continue PPI and Octreotide gtt. Qualifiers: Abdominal location: right lower quadrant Qualified Code(s): R10.31 - Right lower quadrant pain - Time Spent With Patient Total time spent is greater than 50% in coordination of care (as documented) at patient's floor/unit and/or counseling patient: GI History of Present Illness - Data of Consult Patient: known to practice within the last 3 years Consult date: 07/05/17 Requesting Physician: Alexi Tillman - Consult Narrative Reason for consult: f/u for GI bleed History of present illness: Mr. Ghosh is a 66 year old male with PMHx of arthritis, bladder cancer with removal of bladder in 2010, alcoholic cirrhosis, aortic aneurysm, and HTN that presented to the ED with right sided abdominal pain and rectal bleeding. He has been having some melena and he denies BRBPR. Patient was seen 2 days priot to admission at [facility] and diagnosed with ileitis and discharged with Cipro, Flagyl, and Meloxicam. Fecal occult blood test positive on 07/03/17. Pt was started on octreotide and PPI infusions. He states he wants to leave the hospital today. Procedures: EGD 09/23/2015 Dr. Gul: Gastritis and mild duodenitis. NSAIDs: None Anticoagulation: None Past Med Surg Social Fam HX - Past Medical History Medical history: arthritis, cancer (Bladder cancer w/removal of bladder in 2010) , cirrhosis, hypertension, other Psychiatric history: no psych history - Past Surgical History Surgical History: other (Bladder removal) - Social History Smoking Status: Current every day smoker Packs per day: 0.5 Smokeless Tobacco Status: No Alcohol use: none Drug use: marijuana - Family History Father Race: Family Member Ethnicity: Non- Living Status: Age at : 62 Cause of : Suicide Hx Family Cardiac Disorders: Yes ([place], CAD) Brother Race: Family Member Ethnicity: Non- Living Status: Hx Family Cardiac Disorders: Yes (CAD, [place]) Hx Family Cancer: Yes Mother Race: Family Member Ethnicity: Non- Living Status: Cause of : Old age Sister Race: Family Member Ethnicity: Non- Living Status: Cause of : Unknown - Gastrointestinal Gastrointestinal: Present: as per HPI - Constitutional Constitutional: as per HPI - EENT Eyes: as per HPI Ears: Present: as per HPI Nose, mouth and throat: Present: as per HPI - Cardiovascular Cardiovascular ROS: Present: as per HPI - Respiratory Respiratory IM: Present: as per HPI - Genitourinary Genitourinary: Absent: change in color, Urinary frequency - Neurological ROS Neurological GI: Present: as per HPI - Hematologic/Lymphatic Hematologic/Lymphatic pediatric: Present: as per HPI - Musculoskeletal Musculoskeletal ROS GI: Present: as per HPI - Integumentary Integumentary GI: Present: as per HPI - Psychiatric ROS Psychiatric GI: Present: as per HPI - Endocrine Endocrine IM: Present: as per HPI - Constitutional Vitals: Temp Pulse Resp BP Pulse Ox 97.5 F L 42 17 101/63 99 07/05/17 11:43 07/05/17 11:43 07/05/17 11:43 07/05/17 11:43 07/05/17 11:43 General appearance: Present: cooperative, A&O X 3, no acute distress, answers questions appropriately - Head Head exam: Present: atraumatic, normocephalic - Eye Eye exam: Present: normal appearance, sclera anicteric - ENT ENT exam: Present: mucous membranes dry - Neck Neck exam general surgery: Present: normal inspection, trachea midline - Respiratory Respiratory exam: Present: CTAB. Absent: rales, rhonchi - Cardiovascular Cardiovascular exam: Present: RRR, +S1, +S2 - GI/Abdominal GI/Abdominal exam: Present: soft, no peritoneal signs. Absent: distended, firm , guarding, tenderness Additional comments: Ileal conduit with appliance is present right mid abdominal wall. - Rectal Rectal exam: Present: deferred - Extremities Exam Extremities exam: Present: warm - Neurological Exam Neurological exam: Present: no focal deficits - Psychiatric Psychiatric exam: Present: normal affect, normal mood - Skin Skin exam: Present: dry, intact, normal color, warm Results - Labs CBC & Chem 7: 07/05/17 03:11 07/05/17 03:11 Labs: Last Result Calcium 7.7 mg/dL (8.6-10.8) L 07/05/17 03:11 Triglycerides 150 mg/dL (< 150) H 07/04/17 02:18 Stool Occult Blood Positive (Negative) A 07/03/17 00:00 Entire Visit Hgb 9.8 g/dL (12.9-16.9) L 07/05/17 03:11 Hct 28.7 % (37.5-50.1) L 07/05/17 03:11 PT 12.5 Seconds (9.4-12.1) H 07/03/17 10:02 Total Bilirubin 0.7 mg/dL (0.2-1.2) 07/05/17 03:11 AST 23 Units/L (5-34) 07/05/17 03:11 ALT 12 Units/L (0-55) 07/05/17 03:11 Lipase 12 Units/L (8-78) 07/02/17 23:45 - ABG ABG results: PT/INR, D-dimer PT 12.5 Seconds (9.4-12.1) H 07/03/17 10:02 Consult Discharge Plan - Plan Instructions: Pantoprazole (By mouth), Gastrointestinal Bleeding (DC) Referrals: Sushil Rowan MD [Primary Care Provider] - 07/13/17 10:00 am (please follow up as schedule...) Prescriptions: Pantoprazole Sodium 40 mg PO BID #60 tablet.Darlin Diaz - Last Filed: 07/05/17 17:09> Date of Encounter: 07/05/17 Time of Encounter: 13:00 - Time Spent With Patient Total time spent is greater than 50% in coordination of care (as documented) at patient's floor/unit and/or counseling patient: GI History of Present Illness - Data of Consult Requesting Physician: Alexi Tillman - Consult Narrative History of present illness: Mr. Ghosh is a 66 year old male - Constitutional Vitals: Temp Pulse Resp BP Pulse Ox 97.5 F L 42 14 113/70 95 07/05/17 16:21 07/05/17 16:21 07/05/17 16:21 07/05/17 16:00 07/05/17 16:21 Results - Labs CBC & Chem 7: 07/05/17 03:11 07/05/17 03:11 Labs: Last Result Calcium 7.7 mg/dL (8.6-10.8) L 07/05/17 03:11 Triglycerides 150 mg/dL (< 150) H 07/04/17 02:18 Stool Occult Blood Positive (Negative) A 07/03/17 00:00 Entire Visit Hgb 9.8 g/dL (12.9-16.9) L 07/05/17 03:11 Hct 28.7 % (37.5-50.1) L 07/05/17 03:11 PT 12.5 Seconds (9.4-12.1) H 07/03/17 10:02 Total Bilirubin 0.7 mg/dL (0.2-1.2) 07/05/17 03:11 AST 23 Units/L (5-34) 07/05/17 03:11 ALT 12 Units/L (0-55) 07/05/17 03:11 Lipase 12 Units/L (8-78) 07/02/17 23:45 - ABG ABG results: PT/INR, D-dimer PT 12.5 Seconds (9.4-12.1) H 07/03/17 10:02 - Attending Attestation I examined this patient and my medical decision-making was reviewed with the Resident Physician. I agree with the documented findings, disposition and treatment plan as described except to the extent set forth below.
[2017-07-05] MEDS ORDERED: 0.9 % Sodium Chloride 1,000 ML IVC SCH (13:30)
--- NOTE | 2017-07-05 13:31 | Anesthesia Evaluation PreOp ---
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 Significant HX Other Medical History: Hepatic (cirrhosis with portal htn, secondary to etoh abuse in the ) Anesthesia History: No Prior Anesthetic Complications, Past Anesthesia ( cystectomy, egd) Alcohol Use: none Drug use: marijuana Medications and Allergies Nadolol [Corgard] 40 mg PO DAILY 05/07/15 [History] Cholecalciferol (Vitamin D3) [Vitamin D] 5,000 unit PO DAILY #30 tablet [Rx] Cyanocobalamin (Vitamin B-12) [Vitamin B-12] 1,000 mcg PO DAILY #90 tablet 02/23 [Rx] Ciprofloxacin HCl [Cipro] 500 mg PO BID #14 tablet 07/01/17 [Rx] Meloxicam 7.5 mg PO BID #14 tablet 07/01/17 [Rx] metroNIDAZOLE [Flagyl] 500 mg PO TID #21 tablet 07/01/17 [Rx] Gabapentin [Neurontin] 300 mg PO BID 07/03/17 [History] Oxycodone HCl/Acetaminophen [Percocet 5-325 mg Tablet] 1 tab PO TID PRN [History] 3 Allergy/AdvReac Type Severity Reaction Status Date / Time Oxycodone Allergy Unknown unknown Verified 07/02/17 23:26 - Meds/Allergy Pre-op Review Medications Reviewed: Yes Allergies Reviewed: Yes Beta Blockers on Current Med List: Yes If Beta Blockers taken, Date/Time (Last Dose taken): today 804 Anesthesia Results - Labs 07/05/17 03:11 07/05/17 03:11 Anesthesia Exam Selected Entries 07/05/17 13:17 Temperature 97.6 F Pulse Rate 41 Respiratory Rate 18 Blood Pressure 121/76 O2 Sat by Pulse Oximetry 100 Weight: 55kg NPO (# of Hours): 8 for solids - HEENT Pupil (Motor): EOMI Mallampati: II Teeth: Edentulous Oral Opening: Greater than 3 - GRAIN MERCHANDISING MANAGER LOC: Oriented GRAIN MERCHANDISING MANAGER Motor: Normal RUE, Normal LUE, Normal RLE, Normal LLE, Normal Face GRAIN MERCHANDISING MANAGER Sensory: Normal: RUE, LUE, RLE, LLE, Face - Cardiac Rhythm: Regular Murmur: None - Pulmonary Breath Sounds: bilateral Clear Respiratory Effort: Symmetrical Anesthesia Assess/Plan ASA Score: 3 Modified Bristol Scale for Level of Consciousness: Cooperative, oriented, and tranquil Anesthetic Plan: MAC Monitoring Plan: Standard Monitors Recovery Plan: Other (discussed MAC, agrees to proceed)
--- NOTE | 2017-07-05 15:48 | Discharge Summary ---
Date of Encounter: 07/05/17 Time of Encounter: 11:00 - Discharge Diagnosis (1) GI bleeding Priority: Primary Status: Acute Qualifiers: GI bleed type/associated pathology: unspecified gastrointestinal hemorrhage type Qualified Code(s): K92.2 - Gastrointestinal hemorrhage, unspecified (2) Abdominal pain Priority: Primary Status: Acute Qualifiers: Abdominal location: right lower quadrant Qualified Code(s): R10.31 - Right lower quadrant pain (3) Cholelithiasis Priority: Secondary Status: Chronic Qualifiers: Cholelithiasis location: gallbladder Cholecystitis acuity: chronic Biliary obstruction: without biliary obstruction Qualified Code(s): K80.10 - Calculus of gallbladder with chronic cholecystitis without obstruction (4) Cirrhosis of liver Priority: Secondary Status: Chronic Qualifiers: Hepatic cirrhosis type: alcoholic cirrhosis Ascites presence: without ascites Qualified Code(s): K70.30 - Alcoholic cirrhosis of liver without ascites (5) HTN (hypertension) Priority: Secondary Status: Chronic Qualifiers: Hypertension type: essential hypertension Qualified Code(s): I10 - Essential (primary) hypertension - Discharge Medications Prescriptions: Pantoprazole Sodium 40 mg PO BID #60 tablet. Home Medications: Nadolol [Corgard] 40 mg PO DAILY 05/07/15 [History] Cholecalciferol (Vitamin D3) [Vitamin D3] 5,000 unit PO DAILY #30 tablet [Rx] Cyanocobalamin (Vitamin B-12) [Vitamin B12] 1,000 mcg PO DAILY #90 tablet [Rx] Ciprofloxacin HCl [Cipro] 500 mg PO BID #14 tablet 07/01/17 [Rx] Meloxicam 7.5 mg PO BID #14 tablet 07/01/17 [Rx] metroNIDAZOLE [Flagyl] 500 mg PO TID #21 tablet 07/01/17 [Rx] Gabapentin [Neurontin] 300 mg PO BID 07/03/17 [History] Oxycodone HCl/Acetaminophen [Percocet 5-325 mg Tablet] 1 tab PO TID PRN [History] Pantoprazole Sodium 40 mg PO BID #60 tablet. 07/05/17 [Rx] Allergies/Adverse Reactions: 3 Allergy/AdvReac Type Severity Reaction Status Date / Time Oxycodone Allergy Unknown unknown Verified 07/02/17 23:26 Procedures/tests Complete & Pending: Procedures Performed prior 72 hours Category Date Time Status US liver [US] Routine Exams 07/05/17 14:00 Ordered Date of admission: 07/03/17 09:41 Primary care physician: Sushil Rowan MD Consults: 07/03/17 09:47 Consult to Nutrition [CONS] Routine Comment: Consulting Provider: NUTRITION Reason for Dietary Consult: PO Supplementation 07/03/17 11:53 Consult to Surgery [CONS] Routine Consulting Provider: Surgery [facility] - [facility] Reason for Consult: Patient seen in ED two days ago for abdominal pain. CT showed ilieitis. Pt. sent home on abx. Returns today w/worsening pain and melanotic stools x2. Hgb 12.6 and Hct 36.0 on 07/02. Hgb 11.4 and Hct 32.6 today at 07:28 and 10.8 and 31.6 at 10:02 today. H/H Q3 HR. Hx of bladder cancer w/removal of bladder in 2010. Protonix drip and type/screen ordered. IVPB Flagyl. Call Completed: Yes 07/05/17 10:13 Consult to Gastroenterology [CONS] Routine Consulting Provider: Gastroenterology Esther Reason for Consult: Follow up for GI bleed, DR Guajardo Call Completed: No - Patient Status Disposition: Home, Self-Care Condition: Fair - Discharge Instructions Follow Up With: Sushil Rowan MD [Primary Care Provider] - Hospital course: Patient is a 66-year-old male with past medical history significant for bladder cancer (2010), alcoholic liver cirrhosis, chronic kidney disease (stage III) and a [id number] smoker who presented to the ER on 07/03/17 with right-sided abdominal pain and rectal bleeding. Patient reported a 2 day history of decreased appetite, nausea/vomiting, increased weakness, abdominal pain and rectal bleeding and decided to come to the ER for evaluation. In the ER patient was found to be anemic with an occult positive stool. He was admitted to the medical floor for further workup of anemia with GI bleed. During patients hospital stay, his hemoglobin did drop but remained hemodynamically stable and did not require any blood transfusions. Patient was placed on octreotide drip along with Protonix infusion. GI was consulted and EGD on 07/05/17 showed localized moderate inflammation characterized by congestion (edema) and erosions in the pyloric region of the stomach. In addition to nonbleeding. Duodenal ulcers were found in the second portion of duodenum the largest 3 cm. Recommendations are for patient to start proton pump inhibitor and to avoid NSAIDs. Patient will be discharged to follow up with his primary care provider. - Time Spent with Patient Total time spent providing and/or coordinating discharge services: Less than 30 minutes - Constitutional Vitals: Temp Pulse Resp BP Pulse Ox 98.9 F 40 16 99/65 98 07/05/17 15:02 07/05/17 15:02 07/05/17 15:02 07/05/17 15:02 07/05/17 15:02 General appearance: Present: cooperative, mild distress, A&O X 3, pleasant, underweight, answers questions appropriately - Respiratory Respiratory exam: Present: CTAB. Absent: accessory muscle use, rales, rhonchi, wheezes - Cardiovascular Cardiovascular exam: Present: RRR, +S1, +S2. Absent: diastolic murmur, gallop, rubs, systolic murmur - GI/Abdominal GI/Abdominal exam: Present: normal bowel sounds, soft, no peritoneal signs. Absent: distended, tenderness - VTE Documentation of Mechanical Device: Intermittent pneumatic compression device
[2017-07-05 16:08] VITALS: BP 113/70
[2017-07-05] MEDS ORDERED: Pantoprazole 40 MG VIAL IVP SCH (18:00)
== END 2017-07-05 18:21 | disposition home or self-care (01) | DRG 254 ==
LOC: 2ANU 22:45 → EMEROO 22:45 → 2ANU 07-03 02:05
PROVIDERS: ADMIT Hospitalist; ATTEND Hospitalist
PROC: ENDOEBX (2017-07-05 13:15)